=== PATIENT | male | born 1975 | race Caucasian/White ===

== ENCOUNTER 2020-03-04 05:57 | Emergency (ER) | payer MEDICARE, MEDICAID ==
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
[2020-03-04] MEDS: Sodium Chloride 0.9% 1,000 ML IV SCH (07:45)
[2020-03-04] MEDS: Thiamine 100 MG Tab PO ONE (08:14)
[2020-03-04] MEDS: Ondansetron 4 MG Tab.DIS PO ONE (10:28)
== END 2020-03-04 11:40 | disposition home or self-care (01) ==
LOC: JP.ED 05:57
DX: K70.10 Alcoholic hepatitis without ascites (principal); F10.129 Alcohol abuse with intoxication, unspecified; F17.210 Nicotine dependence, cigarettes, uncomplicated; E78.00 Pure hypercholesterolemia, unspecified; I10 Essential (primary) hypertension; J44.9 Chronic obstructive pulmonary disease, unspecified; K21.9 Gastro-esophageal reflux disease without esophagitis; F41.9 Anxiety disorder, unspecified; F32.9 Major depressive disorder, single episode, unspecified; E11.40 Type 2 diabetes mellitus with diabetic neuropathy, unspecified; Z86.73 Personal history of transient ischemic attack (TIA), and cerebral infarction without residual deficits; Z79.899 Other long term (current) drug therapy
CPT/HCPCS: 36415; 80053; 80305; 80307; 81001; 82550; 83690; 85025; 96360; 96361; 99285; A9270; J7030